=== PATIENT | male | born 1980 | race Caucasian/White ===

== ENCOUNTER 2019-10-14 15:19 | Observation (INO) ==
--- NOTE | 2019-10-14 15:31 | ERNOTE ---
Abdominal HPI - Narrative Date of Service: 10/14/19 - General Chief Complaint: Abdominal Pain Time Seen by Provider: 10/14/19 15:20 Source: patient Exam Limitations: no limitations - Immun/Allergies/Home Medications Immunizatons: IMMUNIZATION HX Immunizations Up to Date Yes History of Influenza Vaccine Yes Hx Pneumococcal Vaccination No Allergies/Adverse Reactions: Allergies Penicillins Adverse Reaction (Unverified 08/26/12 23:03) Home Medications: HOME MEDICATIONS NK [No Home Medication] 08/26/12 [Last Taken Unknown] - History of Present Illness Narrative: 39-year-old male transferred from [facility] with concerns for acute appendicitis. Patient presents with 3-day history of right lower quadrant pain. He notes the pain is worse movement better with rest. He rates the pain when moving at a 7/10. He notes when he is at rest his pain is minimal. Patient notes he has not taken any medications at home given any significant relief. He notes his symptoms have mildly increased over the past few days. He does not relate any other significant abdominal pain, constipation, diarrhea, nausea or vomiting. He denies any other falls or traumas. He states he has been able to maintain a normal diet without significant complication. He notes there are no other radiating symptoms. He does note he has a chronic cough due to smoking he notes there is no significant worsening with this at this time. He does note that he has had some urinary frequency but does not believe this associated with his current abdominal pain. He was brought to [facility] ER by ambulance. Patient case had been previously refused with Dr. Millan prior to arrival. Review of Systems - Review of Systems Constitutional: Absent: fever, chills, weakness, fatigue EYE: Absent: blurred vision, double vision ENT: Absent: ear pain, sore throat Respiratory: Present: cough. Absent: shortness of breath Cardiology: Absent: chest pain, syncope Gastrointestinal/Abdominal: Present: abdominal pain - see HPI. Absent: nausea, vomiting, diarrhea, constipation Genitourinary: Present: frequency. Absent: dysuria, hematuria Musculoskeletal: Absent: back pain, joint pain Skin: Absent: rash, dryness Endocrine: Absent: unexplained weight gain, unexplained weight loss All Other Systems: All systems neg except as marked Social History: Tobacco: Smoking Status: Current some day smoker Physical Exam - Physical Exam General Appearance: Present: wd/wn, alert, no apparent distress Head Exam: Present: normal inspection, no evidence of injury Eye Exam: Normal inspection: bilateral, PERRL: bilateral, EOMI: bilateral Neck: Present: normal inspection, nontender Respiratory: Present: no respiratory distress, normal breath sounds, no accessory muscle use, chest nontender, lungs clear Cardiovascular/Chest: Present: regular rate, rhythm, no murmur, normal peripheral pulses Peripheral Pulses: N=norm/S=strong/W=weak/B=bound/A=absent: Radial (R): Normal, Radial (L): Normal, Dorsalis-pedis (R): Normal, Dorsalis-pedis (L): Normal Gastrointestinal/Abdominal: Present: normal bowel sounds, nondistended, soft, tenderness - Right lower quadrant Back Exam: Present: normal inspection, normal range of motion, no CVA tenderness Extremity Exam: Present: normal inspection, non-tender, normal range of motion, no edema Neurological Exam: Present: alert, oriented, normal mood/affect, no motor/sensory deficits Skin Exam: Present: normal color, warm/dry Progress - Date and Time Seen: Date and Time: 10/14/19 15:34 Patient has been evaluated HPI and past medical history obtained as well as exam performed. Appears to have acute abdominal pain, previous CT revealed concern for a nonobstructive kidney stone and acute appendicitis. Discussed with patient further evaluation with Dr. Millan for further treatment. Dr. Millan has arrived in the room and is discussing further care with the patient. Will review previous radiology reports, and previous treatment. Continue treatment per general surgeon recommendation. - Vital Signs Patient's Vital Signs:: I have reviewed the patient's vital signs. Vital Signs: Vital Signs 10/14/19 15:20 Temperature 37.0 C Pulse Rate 66 Respiratory Rate 14 Blood Pressure 142/88 H O2 Sat by Pulse Oximetry 98 - Progress/Reassessment Chief Complaint: Abdominal Pain Progress:: Unchanged Plan - Plan Plan: Turning over care to general surgeon Dr. Millan. Departure Clinical Impression: Appendicitis Qualifiers: Appendicitis type: acute appendicitis Acute appendicitis type: unspecified acute appendicitis type Qualified Code(s): K35.80 - Unspecified acute appendicitis - Departure Disposition: Still a patient Condition: Stable
[2019-10-14] MEDS ORDERED: CEFOXITIN SODIUM 2 GM in DEXTROSE 5 % IN WATER 100 ML IV ONE ×2 (16:11)
--- NOTE | 2019-10-14 16:11 | HP ---
Chief Complaint - Chief Complaint Date of Service: 10/14/19 Time of Service: 16:03 Chief Complaint: right lower quadrant pain History of Present Illness: He is not a precise historian. He apparently started having abdominal pain about 3 days ago. It got worse. He presented to the emergency room in [place]. CT scan there with IV and no p.o. contrast showed acute inflammatory change of the right lower quadrant. Distended retrocecal appendix with adjacent inflammatory change suggesting acute retrocecal appendicitis. He does have right-sided diverticulosis as well. He has an elevated white blood cell count and right lower quadrant direct and rebound tenderness. There is no surgeon available in [place] and he was transferred here for further treatment. Medical History (Last Reviewed 10/14/19 @ 16:05 by Bhavani Millan MD) Constipation Diverticulitis GERD (gastroesophageal reflux disease) Surgical History: Surgical History (Last Reviewed 10/14/19 @ 16:05 by Bhavani Millan MD) Hx of colonoscopy Hx of inguinal hernia repair Hx of tonsillectomy Family History: Family History (Last Reviewed 10/14/19 @ 16:05 by Bhavani Millan MD) Father Diabetes COPD (chronic obstructive pulmonary disease) Hypertension Mother Hypertension Social History: (Last Reviewed 10/14/19 @ 16:05 by Bhavani Millan MD) Tobacco: Smoking Status: Current some day smoker Alcohol: alcohol intake: current Alcohol type: beer alcohol intake frequency: holiday/special occasion Substance Use: substance use type: does not use Review Of Systems (GEN) - Review of Systems Generalized/Overall Review: Absent: Chills, Fever EENTM: Present: Other - Sinus congestion (chronic) with a lot of mucus Respiratory: Present: Cough - Chronic, nonproductive. He states he has wake up at night short of breath (chronic) Cardiac: Absent: Chest Pain, Palpitations Abdominal: Present: Abdominal Pain, Other - Hurts to cough or go over bumps. Absent: Nausea, Vomiting, Constipation, Diarrhea, Bright blood from rectum Musculoskeletal: Present: Other - Ankle pain when he skateboards a lot Neurological: Present: No Symptoms Reported, Headache - No focal neurologic symptoms, he thinks is from his sinuses Skin: Present: No Symptoms Reported Endocrine: Present: No Symptoms Reported Immunizations: IMMUNIZATION HX Immunizations Up to Date Yes History of Influenza Vaccine Yes Hx Pneumococcal Vaccination No Allergies/Adverse Reactions: Allergies Allergy/AdvReac Type Severity Reaction Status Date / Time Penicillins Allergy Unknown Verified 10/14/19 15:44 Home Medications: HOME MEDICATIONS Ascorbic Acid [Vitamin C] 1,000 mg PO DAILY 10/14/19 [Last Taken Unknown] Cholecalciferol (Vitamin D3) [Vitamin D3] 2,000 unit PO DAILY 10/14/19 [Last Taken Unknown] Echinacea 380 mg PO DAILY 10/14/19 [Last Taken Unknown] Esomeprazole Magnesium [Nexium 24Hr] 20 mg PO DAILY 10/14/19 [Last Taken Unknown] Grape Seed Extract [Grape Seed] 50 mg PO DAILY 10/14/19 [Last Taken Unknown] L.acidoph,Paracasei, B.lactis [Probiotic] 1 ea PO DAILY 10/14/19 [Last Taken Unknown] Milk Thistle 150 mg PO DAILY 10/14/19 [Last Taken Unknown] Ubidecarenone/Vit E Acet [Co Q-10 100 mg Softgel] 1 ea PO DAILY 10/14/19 [Last Taken Unknown] Vitamin E 1,000 unit PO DAILY 10/14/19 [Last Taken Unknown] Exam - Exam Vital Signs: Vital Signs - Last Taken Temp 37.0 C 10/14/19 15:20 Pulse 66 10/14/19 15:20 Resp 14 10/14/19 15:20 BP 142/88 H 10/14/19 15:20 Pulse Ox 98 10/14/19 15:20 Constitutional: Present: Alert, Oriented x3, Cooperative, Other - Thin, plethoric, not a precise historian ENT Exam: Present: normal ENT inspection Eye Exam: bilateral eye: normal inspection Neck: Present: full range of motion, normal inspection Back Exam: Present: normal inspection, no CVA tenderness Breasts: Present: Exam deferred Respiratory: Present: lungs clear, normal breath sounds, no respiratory distress Cardiovascular/Chest: Present: normal peripheral pulses, regular rate, rhythm, no murmur Abdomen: Present: soft, other - Tender right lower quadrant /Rectal: Present: Exam deferred Extremity: Present: normal range of motion, normal inspection, no pedal edema, no calf tenderness Neurologic: Present: director education II-XII nml as tested, normal cerebellar test, no motor/sensory deficits, alert, normal mood/affect, oriented x 3 Appearance: Present: appropriate appearance Eye contact: Present: cooperative, good eye contact, normal speech Thoughts: Present: normal thought pattern, other - Imprecise historian Diagnostic Studies: CT scan from [place] reviewed. Elevated WBC Assessment/Plan - Assessment/Plan (1) Appendicitis Assessment: Explained using diagrams the nature of appendicitis and its treatment. The risks and possible complications of appendectomy were explained. After an interactive discussion his questions were answered to his apparent satisfaction and he has given informed consent for appendectomy. Will use chlorhexidine wipes, IV Mefoxin, SCDs. Problem: Acute Qualifiers: Appendicitis type: acute appendicitis Acute appendicitis type: unspecified acute appendicitis type Qualified Code(s): K35.80 - Unspecified acute appendicitis
[2019-10-14] MEDS ORDERED: BUPIVACAINE HCL/EPINEPHRINE/PF 30 ML VIAL IJ ONE (16:23)
[2019-10-14] MEDS ORDERED: MUPIROCIN 22 APPL TUBE TP ONE ×2 (16:23→18:00)
[2019-10-14] MEDS ORDERED: ISOPROPYL ALCOHOL 480 APPL BTL MC ONE (16:30)
--- NOTE | 2019-10-14 16:41 | ANES ---
Anesthesia Pre Procedure Eval Vitals/Labs: Last Vital Signs Temp 37.0 C 10/14/19 15:20 Pulse 66 10/14/19 15:20 Resp 14 10/14/19 15:20 BP 142/88 H 10/14/19 15:20 Pulse Ox 98 10/14/19 15:20 HOME MEDICATIONS Ascorbic Acid [Vitamin C] 1,000 mg PO DAILY 10/14/19 [Last Taken Unknown] Cholecalciferol (Vitamin D3) [Vitamin D3] 2,000 unit PO DAILY 10/14/19 [Last Taken Unknown] Echinacea 380 mg PO DAILY 10/14/19 [Last Taken Unknown] Esomeprazole Magnesium [Nexium 24Hr] 20 mg PO DAILY 10/14/19 [Last Taken Unknown] Grape Seed Extract [Grape Seed] 50 mg PO DAILY 10/14/19 [Last Taken Unknown] L.acidoph,Paracasei, B.lactis [Probiotic] 1 ea PO DAILY 10/14/19 [Last Taken Unknown] Milk Thistle 150 mg PO DAILY 10/14/19 [Last Taken Unknown] Ubidecarenone/Vit E Acet [Co Q-10 100 mg Softgel] 1 ea PO DAILY 10/14/19 [Last Taken Unknown] Vitamin E 1,000 unit PO DAILY 10/14/19 [Last Taken Unknown] Allergies/Adverse Reactions: Allergies Allergy/AdvReac Type Severity Reaction Status Date / Time Penicillins Allergy Unknown Verified 10/14/19 15:44 - Planned Procedure Planned Procedure: appendicitis Medication List Reviewed:: Yes Allergies Verified: Yes Medical History (Last Reviewed 10/14/19 @ 16:39 by Lex Knox CRNA) Constipation Diverticulitis GERD (gastroesophageal reflux disease) Surgical History (Last Reviewed 10/14/19 @ 16:39 by Lex Knox CRNA) Hx of colonoscopy Hx of inguinal hernia repair Hx of tonsillectomy Family History (Last Reviewed 10/14/19 @ 16:40 by Lex Knox CRNA) Father Diabetes COPD (chronic obstructive pulmonary disease) Hypertension Mother Hypertension - Family Anesthesia History Family History:: no untoward family reactions to anesthesia, no familial bleeding tendencies, no family history of clotting disorders, no family history of premature - Airway/Neck/Teeth Within Normal Limits:: Yes Teeth Condition: intact Neck Exam: full range of motion Mallampatti Score: 2 Thyromental (T-M) distance: > 6 cm Mandibulo Hyoid distance: > 3 cm - Respiratory Respiratory Physical: lungs clear Smoking Status: Current some day smoker - 2 gail sweets per day Discussed smoking cessation including day of surgery: Yes - This am Sleep Apnea currently treated: No Sleep Apnea by current assessment: No - Cardiovascular Tolerate Activity: Fair Heart Sounds: S1 & S2, Regular - Anesthesia Assessment and Plan ASA Class: PS, II, E Anesthesia Type Plan: General ET
[2019-10-14] MEDS ORDERED: fentaNYL CITRATE/PF 50 MCG/ML AMPUL ONE (16:52)
[2019-10-14] MEDS ORDERED: SEVOFLURANE 250 ML BTL IH ONE (16:53)
[2019-10-14] MEDS ORDERED: LIDOCAINE HCL 50 ML VIAL ONE (16:53)
[2019-10-14] MEDS ORDERED: KETOROLAC TROMETHAMINE 30 MG/ML VIAL ONE (16:53)
[2019-10-14] MEDS ORDERED: SUCCINYLCHOLINE CHLORIDE 20 MG/ML VIAL ONE (16:53)
[2019-10-14] MEDS ORDERED: ONDANSETRON HCL/PF 2 MG/ML VIAL ONE (16:53)
[2019-10-14] MEDS ORDERED: PROPOFOL VIAL IV ONE (16:53)
[2019-10-14] MEDS ORDERED: BUPIVACAINE HCL/PF 30 ML VIAL IJ ONE (17:30)
[2019-10-14] MEDS ORDERED: ACETAMINOPHEN 325 MG TABLET PO PRN (18:19)
[2019-10-14] MEDS ORDERED: ONDANSETRON HCL/PF 2 MG/ML VIAL IV PRN (18:19)
--- NOTE | 2019-10-14 18:22 | ANES ---
Post Anesthesia Discharge - Transfer of Care Transfer of Care handoff given to nurse: Yes - Discharge from PACU Discharge from PACU when meets criteria: Yes - Comfortable.
[2019-10-14] MEDS ORDERED: PANTOPRAZOLE SODIUM 40 MG in NORMAL SALINE 100 ML IV ONE (18:23)
--- NOTE | 2019-10-14 18:56 | OR ---
Operative Report - Dictated Report Narrative: Date of operation 10/14/2019 Preoperative diagnosis: Acute appendicitis Postoperative diagnosis: Pathology pending Operation: Laparoscopic appendectomy Surgeon: STEVEN Millan MD Anesthesia: Gen. endotracheal rapid sequence intubation Lex Knox CRNA Indications for procedure: The patient is a 39-year-old male with a several day history of abdominal discomfort. He was evaluated in the emergency room in [place]. He was found to have an elevated white blood cell count, right-sided abdominal tenderness, and a CT scan which suggested either acute appendicitis or possibly diverticulitis. Findings: Inflammatory exudate adjacent to the cecum. Enlarged appendix. (Pathology pending) Narrative of procedure: The patient was identified preoperatively, and prior to the administration of anesthetic a multidisciplinary timeout was observed. The patient was placed supine, SCDs were applied, and rapid sequence glide scope assisted endotracheal intubation was performed. General endotracheal anesthetic was administered. The patient's abdomen was prepped with Betadine solution, and a generous operating field outlined with 4 sterile towels. The remainder the patient was covered with a sterile disposable drape. A transverse infraumbilical skin incision was made, and dissection was carried along the umbilical stalk until the fascia of the linea alba was encountered. This was incised. The peritoneum was elevated and incised to allow entry into the a bdomen under direct vision. A Hussan cannula was placed and the abdomen insufflated with CO2. The laparoscopic camera was introduced and the abdomen briefly explored. Those portions of the liver, gallbladder, stomach, and omentum visualized appeared normal. The appendix was not immediately visible. Next under direct vision, 2 additional working ports were inserted through separate skin incisions, one in the suprapubic area one in the left lower quadrant. The apex of the cecum was grasped and retracted cephalad. The appendix was seen to be lateral to the cecum. There was inflammatory exudate on the pericecal fat. The appendix itself was somewhat enlarged but not grossly inflamed. Lateral peritoneal attachments to the appendix were divided until it could be elevated completely. The mesoappendix and stump of the appendix were then transected with a laparoscopic JONH stapling device. The stump of the appendix was seen to be hemostatic and gas and liquid tight. The mesoappendix was seen to be hemostatic. The appendix was placed in an Endobag and parked in the right lower quadrant. The right lower quadrant was suctioned clean. The small working ports were then withdrawn under direct vision to ensure entry site hemostasis. The appendix was removed in conjunction with the Hussan cannula. The pneumoperitoneum was allowed to escape, and after receiving a correct sponge needle and instrument count attention was turned to closing the abdomen. The fascia and peritoneum at the umbilicus were approximated with interrupted sutures of #1 Vicryl. Skin incisions were approximated with interrupted vertical mattress sutures of 4-0 nylon. The operative sites were washed and dried. Dressings of Bactroban ointment and large Band-Aids were applied to the small port sites. The umbilical incision was dressed with Bactroban ointment, 2 x 2, large Band-Aid, and Medipore tape. The operative procedure was terminated at this point. There was no measurable blood loss. 0.5% Marcaine with epinephrine was used for local anesthetic infiltration area the appendix was submitted to pathology. The patient tolerated the anesthetic and procedure well without complication and was transferred to the recovery room awake, extubated, and in stable condition. Reviewed and electronically signed
--- NOTE | 2019-10-14 19:00 | ANES ---
Post Anesthesia Assessment - Vital Signs Vitals: Last Vital Signs Temp 37.2 C 10/14/19 18:30 Pulse 79 10/14/19 18:30 Resp 12 10/14/19 18:30 BP 115/77 10/14/19 18:30 Pulse Ox 98 10/14/19 18:30 Airway Patency: Normal - Mental Status Level Of Consciousness: Awake, Alert, Appropriate - Pain Level Pain Score: 2 - N/V Assessment Nausea/Vomiting Presence: None Dehydration:: No
[2019-10-14] MEDS: RINGER'S SOLUTION,LACTATED 1,000 ML IV PRN (19:09)
[2019-10-14] MEDS: oxyCODONE HCL/ACETAMINOPHEN 1 TAB TABLET PO PRN (19:22)
[2019-10-14] MEDS: CEFOXITIN SODIUM 1 GM in DEXTROSE 5 % IN WATER 100 ML IV SCH ×2 (23:11)
[2019-10-15] MEDS: oxyCODONE HCL/ACETAMINOPHEN 1 TAB TABLET PO PRN ×2 (03:02→09:14)
[2019-10-15] MEDS: CEFOXITIN SODIUM 1 GM in DEXTROSE 5 % IN WATER 100 ML IV SCH ×2 (04:25)
[2019-10-15] MEDS ORDERED: BUPIVACAINE HCL 50 ML VIAL IJ PRN (06:00)
[2019-10-15] MEDS ORDERED: RINGER'S SOLUTION,LACTATED 1,000 ML IV PRN (06:00)
[2019-10-15] MEDS: RINGER'S SOLUTION,LACTATED 1,000 ML IV PRN (06:17)
--- NOTE | 2019-10-15 10:14 | DS ---
(1) Appendicitis Problem: Acute Qualifiers: Appendicitis type: acute appendicitis Acute appendicitis type: unspecified acute appendicitis type Qualified Code(s): K35.80 - Unspecified acute appendicitis Date of Discharge:: 10/15/19 Hospital Course: The patient underwent a laparoscopic appendectomy with the findings of exudate adjacent to an enlarged appendix. Chlorhexidine wipes and IV Mefoxin were used preoperatively with SCDs and early ambulation for VTE prophylaxis. His vital signs remained normal. His right- sided abdominal pain was better he had a incisional discomfort which was controlled with p.o. medication. His incisions remained dry. He was able to tolerate ambulation and p.o. intake. He received 3 additional doses of IV Mefoxin prior to discharge. He is discharged home with written and verbal instructions. He is to call to arrange an office appointment in 1 week for suture removal. He has phone numbers to call if needed for questions or concerns. Prescription for Percocet was transmitted electronically. Procedures Performed: see notes below - Laparoscopic appendectomy Discharge Location: Home Disposition: Home self-care Condition: Good Discharge Activity: No Lifting Discharge Diet: General/regular food Problem Oriented Discharge Instructions to Patient/Family: Laparoscopic Appendectomy, Adult, Care After, [id number] Additional Patient Instructions (free text): He is to call [phone] on 10/17/2019 to make an office appointment for suture removal on 10/21/2019 Prescriptions (Any new or edited meds): oxyCODONE HCL/ACETAMINOPHEN [Percocet 5 MG/325 MG] 1 tab PO Q4H PRN #20 tab PRN Reason: Moderate Pain (Pain Scale 4-6) Transmission Status: Received by [employer] #[id number] Complete Home Medications List: Complete Home Medication List: Ascorbic Acid [Vitamin C] 1,000 mg PO DAILY 10/14/19 Cholecalciferol (Vitamin D3) [Vitamin D3] 2,000 unit PO DAILY 10/14/19 Echinacea 380 mg PO DAILY 10/14/19 Esomeprazole Magnesium [Nexium 24Hr] 20 mg PO DAILY 10/14/19 Grape Seed Extract [Grape Seed] 50 mg PO DAILY 10/14/19 L.acidoph,Paracasei, B.lactis [Probiotic] 1 ea PO DAILY 10/14/19 Milk Thistle 150 mg PO DAILY 10/14/19 Ubidecarenone/Vit E Acet [Co Q-10 100 mg Softgel] 1 ea PO DAILY 10/14/19 Vitamin E 1,000 unit PO DAILY 10/14/19 oxyCODONE HCL/ACETAMINOPHEN [Percocet 5 MG/325 MG] 1 tab PO Q4H PRN #20 tab 10/15/19 Forms: Patient Portal Registration
[2019-10-15] MEDS ORDERED: CEFOXITIN SODIUM IV SCH ×2 (11:00)
[2019-10-15] MEDS ORDERED: DEXTROSE 5% IV SCH ×2 (11:00)
[2019-10-15] MEDS ORDERED: WATER IV SCH ×2 (11:00)
[2019-10-15 11:42] VITALS: BP 124/76
== END 2019-10-15 12:00 | disposition home or self-care (01) ==
LOC: ER 15:19 → MS 15:59 → AMB 15:59
PROVIDERS: ADMIT Surgery; ATTEND Surgery
DX: K57.92 Diverticulitis of intestine, part unspecified, without perforation or abscess without bleeding; D12.1 Benign neoplasm of appendix
CPT/HCPCS: 88305; 88888; 96365; 96366; 96367; 99284; 99285; G0378; J2405